=== PATIENT | male | born 1955 | race Caucasian/White ===

== ENCOUNTER 2019-01-15 12:50 | Inpatient (IN) | payer BC ==
[2019-01-15] MEDS ORDERED: Sodium Chloride 0.9% 1,000 ML IV ONE (13:21)
--- NOTE | 2019-01-15 14:06 | EDM.PDOC ---
ED HPI GENERAL MEDICAL PROBLEM - General Chief Complaint: Gastrointestinal Problem Stated Complaint: SEVERE DIARRHEA AND CHILLS Time Seen by Provider: 01/15/19 13:45 Source of Information: Reports: Patient History Limitations: Reports: No Limitations - History of Present Illness INITIAL COMMENTS - FREE TEXT/NARRATIVE: This 63 yo male patient reports to the ED due to diarrhea (x 2 days) and chills today. The patient reports he has had at least 5 watery bowel movements today and numerous yesterday. The patient reports he has stage 4 prostate cancer with mets to the back, ribs and upper abdomen. The patient was recently diagnosed with hypomagnesemia and placed on oral magnesium tablets. The dosing was increased 2 days ago and his diarrhea started yesterday. The patient reports he has been eating and drinking normally, but feels very thirsty. Onset Date: 01/14/19 Duration: Constant Location: Reports: Abdomen Quality: Reports: Other Severity: Moderate Improves with: Reports: None Worsens with: Reports: None Context: Reports: Other Associated Symptoms: Reports: No Other Symptoms - Related Data Allergies Allergy/AdvReac Type Severity Reaction Status Date / Time environmental AdvReac runny Uncoded 01/15/19 13:05 nose/congestion Home Meds: Home Meds Aspirin 81 mg PO DAILY 01/15/19 [History] Omeprazole 20 mg PO BID 01/15/19 [History] Simvastatin 20 mg PO DAILY 01/15/19 [History] Past Medical History Cardiovascular History: Reports: High Cholesterol Gastrointestinal History: Reports: GERD Hematologic History: Reports: Anemia, B12 Deficiency Oncologic (Cancer) History: Reports: Prostate, Other (See Below) Other Oncologic History: Stage 4 with mets to bone Social & Family History - Tobacco Use Smoking Status *Q: Current Every Day Smoker Years of Tobacco use: 45 Packs/Tins Daily: 1.5 - Caffeine Use Caffeine Use: Reports: Coffee, Soda - Recreational Drug Use Recreational Drug Use: No ED ROS GENERAL - Review of Systems Review Of Systems: ROS reveals no pertinent complaints other than HPI. ED EXAM, GI/ABD - Physical Exam Exam: See Below Exam Limited By: No Limitations General Appearance: Alert, WD/WN, No Apparent Distress Eyes: Bilateral: Normal Appearance, EOMI Ears: Normal External Exam, Normal Canal, Hearing Grossly Normal, Normal TMs Nose: Normal Inspection, Normal Mucosa, No Blood Throat/Mouth: Normal Inspection, Normal Lips, Normal Teeth, Normal Gums, Normal Oropharynx, Normal Voice, No Airway Compromise Head: Atraumatic, Normocephalic Neck: Normal Inspection, Supple, Non-Tender, Full Range of Motion Respiratory/Chest: No Respiratory Distress, Lungs Clear, Normal Breath Sounds, No Accessory Muscle Use, Chest Non-Tender Cardiovascular: Normal Peripheral Pulses, Regular Rate, Rhythm, No Edema, No Gallop, No JVD, No Murmur, No Rub GI/Abdominal Exam: Normal Bowel Sounds, Soft, Non-Tender, No Organomegaly, No Distention, No Abnormal Bruit, No Mass, Pelvis Stable (Male) Exam: Deferred Rectal (Males) Exam: Deferred Back Exam: Normal Inspection, Full Range of Motion, NT Extremities: Normal Inspection, Normal Range of Motion, Non-Tender, Normal Capillary Refill, No Pedal Edema Neurological: Alert, Oriented, CN II-XII Intact, Normal Cognition, Normal Gait, Normal Reflexes, No Motor/Sensory Deficits Psychiatric: Normal Affect, Normal Mood Skin Exam: Warm, Dry, Intact, Normal Color, No Rash Lymphatic: No Adenopathy Course - Vital Signs Last Recorded V/S: Last Vital Signs Temp 37.1 C 01/15/19 12:57 Pulse 66 01/15/19 12:57 Resp 16 01/15/19 12:57 BP 106/60 01/15/19 12:57 Pulse Ox 97 01/15/19 12:57 Orthostatic Blood Pressure [ 94/67 Standing] Orthostatic Blood Pressure [ 107/66 Sitting] Orthostatic Blood Pressure [ 106/60 Supine] - Orders/Labs/Meds Orders: Active Orders 24 hr Category Date Time Status EKG Documentation Completion [RC] URGENT Care 01/15/19 14:42 Ordered Labs: Laboratory Tests 01/15/19 01/15/19 Range/Units 13:37 13:37 WBC 6.1 (5.0-10.0) 10^3/uL RBC 4.20 L (4.6-6.2) 10^6/uL Hgb 13.0 L (14.0-18.0) g/dL Hct 38.0 L (40.0-54.0) % MCV 90.5 (80-100) fL MCH 31.0 (27.0-34.0) pg MCHC 34.2 (33.0-35.0) g/dL Plt Count 222 (150-450) 10^3/uL Neut % (Auto) 79.1 H (42.2-75.2) % Lymph % (Auto) 12.2 L (20.5-50.1) % [place] % (Auto) 7.4 (2-8) % Eos % (Auto) 1.0 (1.0-3.0) % Baso % (Auto) 0.3 (0.0-1.0) % Sodium 135 (135-145) mmol/L Potassium 4.3 (3.6-5.0) mmol/L Chloride 98 L (101-111) mmol/L Carbon Dioxide 26.0 (21.0-31.0) mmol/L Anion Gap 15.3 BUN 14 (7-18) mg/dL Creatinine 0.9 (0.6-1.3) mg/dL Est Cr Clr Drug Dosing 71.58 mL/min Estimated GFR (MDRD) > 60 BUN/Creatinine Ratio 15.55 Glucose 96 (74-105) mg/dL Calcium 9.8 (8.4-10.2) mg/dl Magnesium 0.8 L* (1.8-2.5) mg/dL Total Bilirubin 0.7 (0.2-1.0) mg/dL AST 20 (10-42) IU/L ALT 17 (10-60) IU/L Alkaline Phosphatase 59 (42-121) IU/L Total Protein 7.7 (6.7-8.2) g/dl Albumin 3.9 (3.2-5.5) g/dl Globulin 3.8 Albumin/Globulin Ratio 1.03 Meds: Medications Discontinued Medications Generic Name Dose Route Start Last Admin Trade Name Freq PRN Reason Stop Dose Admin Sodium Chloride 1,000 mls @ 999 mls/hr 01/15/19 13:21 01/15/19 13:41 Normal Saline IV 01/15/19 14:21 999 mls/hr .BOLUS ONE Administration Departure - Departure Time of Disposition: 14:42 Disposition: Admitted As Inpatient 66 Condition: Fair Clinical Impression: Hypomagnesemia, Diarrhea - Discharge Information *PRESCRIPTION DRUG MONITORING PROGRAM REVIEWED*: Not Applicable *COPY OF PRESCRIPTION DRUG MONITORING REPORT IN PATIENT NELLIE: Not Applicable Forms: ED Department Discharge Care Plan Goals: Discussed the history, examination, lab and treatments with Dr. Espinosa. Dr. Espinosa accepted the patient for continued evaluation and treatment as an inpatient at [facility] in [place]. - My Orders Last 24 Hours: My Active Orders 01/15/19 14:42 EKG Documentation Completion [RC] URGENT - Assessment/Plan Last 24 Hours: My Active Orders 01/15/19 14:42 EKG Documentation Completion [RC] URGENT
[2019-01-15 14:11] LABS: ANION GAP 15.3; CHLORIDE,CL 98 mmol/L (101-111); SODIUM,NA 135 mmol/L (135-145)
[2019-01-15] MEDS ORDERED: Acetaminophen 325 MG Tab PO PRN (15:54)
[2019-01-15] MEDS ORDERED: Ondansetron 4 MG/2 ML SDV IVPUSH PRN (15:54)
[2019-01-15] MEDS ORDERED: Sodium Chloride 0.9% 1,000 ML IV SCH (16:00)
--- NOTE | 2019-01-15 16:02 | PCM.HP ---
H&P History of Present Illness - General Date of Service: 01/15/19 Admit Problem/Dx: Admission Diagnosis/Problem Admission Diagnosis/Problem Hypomagnesemia Source of Information: Patient, Old Records, Provider History Limitations: Reports: No Limitations - History of Present Illness Initial Comments - Free Text/Narative: Mr. Hernan Nicole is a 63 y.o male with medical history significant for prostate cancer with osseous metastasis s/p radiation therapy, HLP, COPD, syncope and collapse, RLS, s/p small bowel resection, and hypomagnesemia who presented to the ED with complaints of diarrhea and chills. Patient reports that he was seen in clinic about a week ago and was noted to have low Magnesium. He was started on Magnesium oxide. He was instructed to take 1 to 1.5 pills daily. He was instructed to not take 2 pills as he would have diarrhea. States he decided try two of the pills yesterday and has been having terrible diarrhea to the point of having clear stools since yesterday. He also reports chills. States he had nausea this morning but could only spit up clear sputum. Denies melena, hematochezia, dysuria, hematuria, edema, abdominal pain, chest pain, shortness of breath or fevers. Denies sick contacts or trying new meals. Has not eaten out for a few days. Denies any recent travel. Reports that he drank a bottle of wine coolers yesterday but before that last drink was about a month ago. Smokes 1-2 packs of cigarettes daily. Denies illicit drug use. - Related Data Allergies/Adverse Reactions: Allergies Allergy/AdvReac Type Severity Reaction Status Date / Time environmental AdvReac runny Uncoded 01/15/19 16:02 nose/congestion Home Medications: Home Meds Albuterol [Proventil HFA] 2 puff INH Q4H PRN 01/15/19 [History] Ascorbic Acid [Vitamin C] 1,000 mg PO DAILY 01/15/19 [History] Aspirin 81 mg PO DAILY 01/15/19 [History] Calcium Carbonate/Vitamin D3 [Calcium 500 mg Chewable Tablet] 1,200 mg pe PO DAILY 01/15/19 [History] Cholecalciferol (Vitamin D3) [Vitamin D3] 1,000 unit PO DAILY 01/15/19 [History] Cyanocobalamin (Vitamin B-12) [B-12] 1,000 mcg PO DAILY 01/15/19 [History] Gabapentin [Neurontin] 600 mg PO BEDTIME 01/15/19 [History] Loratadine [Claritin] 10 mg PO DAILY 01/15/19 [History] Magnesium Oxide 400 mg PO BID 01/15/19 [History] Omeprazole 20 mg PO BID 01/15/19 [History] Polyethylene Glycol 3350 [MiraLAX] 17 gm PO DAILY PRN 01/15/19 [History] Potassium Chloride 20 meq PO BID 01/15/19 [History] Simvastatin 20 mg PO DAILY 01/15/19 [History] Vitamin E 100 unit PO DAILY 01/15/19 [History] rOPINIRole HCl [Ropinirole HCl] 5 mg PO DAILY 01/15/19 [History] Past Medical History Cardiovascular History: Reports: High Cholesterol Gastrointestinal History: Reports: GERD Hematologic History: Reports: Anemia, B12 Deficiency Oncologic (Cancer) History: Reports: Prostate, Other (See Below) Other Oncologic History: Stage 4 with mets to bone Social & Family History - Tobacco Use Smoking Status *Q: Current Every Day Smoker Years of Tobacco use: 45 Packs/Tins Daily: 1.5 - Caffeine Use Caffeine Use: Reports: Coffee, Soda - Recreational Drug Use Recreational Drug Use: No H&P Review of Systems - Review of Systems: Review Of Systems: ROS reveals no pertinent complaints other than HPI. Exam - Exam Exam: See Below - Vital Signs Vital Signs: Last Vital Signs Temp 98.7 F 01/15/19 12:57 Pulse 66 01/15/19 12:57 Resp 16 01/15/19 12:57 BP 106/60 01/15/19 12:57 Pulse Ox 97 01/15/19 12:57 Orthostatic Blood Pressure [ 94/67 Standing] Orthostatic Blood Pressure [ 107/66 Sitting] Orthostatic Blood Pressure [ 106/60 Supine] Weight: 132 lb 12.8 oz - Exam General: Alert, Oriented HEENT: Conjunctiva Clear, EOMI, Hearing Intact, Mucosa Moist & [place] Neck: Supple, Trachea Midline Lungs: Clear to Auscultation, Normal Respiratory Effort Cardiovascular: Regular Rate, Regular Rhythm, Normal S1, Normal S2 GI/Abdominal Exam: Normal Bowel Sounds, Soft, Non-Tender, No Distention, No Abnormal Bruit Extremities: Normal Inspection, Non-Tender, No Pedal Edema Skin: Warm, Dry, Intact Neuro Extensive - Mental Status: Alert, Oriented x3, Normal Mood/Affect, Normal Cognition Psychiatric: Alert, Normal Affect, Normal Mood - Patient Data Lab Results Last 24 hrs: Laboratory Results - last 24 hr 01/15/19 01/15/19 Range/Units 13:37 13:37 WBC 6.1 (5.0-10.0) 10^3/uL RBC 4.20 L (4.6-6.2) 10^6/uL Hgb 13.0 L (14.0-18.0) g/dL Hct 38.0 L (40.0-54.0) % MCV 90.5 (80-100) fL MCH 31.0 (27.0-34.0) pg MCHC 34.2 (33.0-35.0) g/dL Plt Count 222 (150-450) 10^3/uL Neut % (Auto) 79.1 H (42.2-75.2) % Lymph % (Auto) 12.2 L (20.5-50.1) % [place] % (Auto) 7.4 (2-8) % Eos % (Auto) 1.0 (1.0-3.0) % Baso % (Auto) 0.3 (0.0-1.0) % Sodium 135 (135-145) mmol/L Potassium 4.3 (3.6-5.0) mmol/L Chloride 98 L (101-111) mmol/L Carbon Dioxide 26.0 (21.0-31.0) mmol/L Anion Gap 15.3 BUN 14 (7-18) mg/dL Creatinine 0.9 (0.6-1.3) mg/dL Est Cr Clr Drug Dosing 71.58 mL/min Estimated GFR (MDRD) > 60 BUN/Creatinine Ratio 15.55 Glucose 96 (74-105) mg/dL Calcium 9.8 (8.4-10.2) mg/dl Magnesium 0.8 L* (1.8-2.5) mg/dL Total Bilirubin 0.7 (0.2-1.0) mg/dL AST 20 (10-42) IU/L ALT 17 (10-60) IU/L Alkaline Phosphatase 59 (42-121) IU/L Total Protein 7.7 (6.7-8.2) g/dl Albumin 3.9 (3.2-5.5) g/dl Globulin 3.8 Albumin/Globulin Ratio 1.03 Result Diagrams: 01/15/19 13:37 01/15/19 13:37 EKG INTERPRETATION EKG Date: 01/15/19 Rhythm: NSR Convent: Normal QRS: RBBB (Incomplete) ST-T: Other (repolarization abnormalities due to incomplete RBBB) QT: Normal - Problem List (1) Prostate cancer metastatic to bone SNOMED Code(s): 124467785 ICD Code: C61 - MALIGNANT NEOPLASM OF PROSTATE; C79.51 - SECONDARY MALIGNANT NEOPLASM OF BONE Status: Acute Current Visit: Yes (2) Tobacco use disorder SNOMED Code(s): 038787772 ICD Code: F17.200 - NICOTINE DEPENDENCE, UNSPECIFIED, UNCOMPLICATED Status : Acute Current Visit: Yes (3) Diarrhea SNOMED Code(s): 22483322 ICD Code: R19.7 - DIARRHEA, UNSPECIFIED Status: Acute Current Visit: Yes (4) Hypomagnesemia SNOMED Code(s): 564395126 ICD Code: E83.42 - HYPOMAGNESEMIA Status: Acute Current Visit: Yes Problem List Initiated/Reviewed/Updated: Yes Orders Last 24hrs: Active Orders 24 hr Category Date Time Status Admission Diagnosis [ADT] Routine ADT 01/15/19 14:44 Ordered Patient Status [ADT] Routine ADT 01/15/19 14:44 Active Cardiac Monitoring [RC] CONTINUOUS Care 01/15/19 15:54 Ordered EKG Documentation Completion [RC] URGENT Care 01/15/19 14:42 Active Oxygen Therapy [RC] PRN Care 01/15/19 15:54 Ordered VTE/DVT Education [RC] PER UNIT ROUTINE Care 01/15/19 15:54 Ordered Vital Signs [RC] Q4H Care 01/15/19 15:54 Ordered Regular Diet [DIET] Diet 01/15/19 Dinner Ordered BASIC METABOLIC PANEL,BMP [CHEM] AM Lab 01/16/19 05:11 Ordered MAGNESIUM [CHEM] AM Lab 01/16/19 05:11 Ordered PHOSPHORUS [CHEM] AM Lab 01/16/19 05:11 Ordered Acetaminophen [Tylenol] Med 01/15/19 15:54 Ordered 650 mg PO Q4H PRN Enoxaparin [Lovenox] Med 01/16/19 09:00 Ordered 40 mg SUBCUT DAILY Magnesium Sulfate/Water [Magnesium Sulfate in Water Med 01/15/19 17:00 Ordered Premix] 2 gm Premix Bag 1 bag IV ONETIME Ondansetron [Zofran] Med 01/15/19 15:54 Ordered 4 mg IVPUSH Q6H PRN Sodium Chloride 0.9% @ 125 MLS/HR (1000ml) Med 01/15/19 16:00 Ordered Sodium Chloride 0.9% [Normal Saline] 1,000 ml IV ASDIRECTED Resuscitation Status Routine Resus Stat 01/15/19 15:54 Ordered Medication Orders Acetaminophen (Tylenol) 650 mg PO Q4H PRN PRN Reason: Pain (Mild 1-3)/fever Enoxaparin Sodium (Lovenox) 40 mg SUBCUT DAILY TASH Sodium Chloride (Normal Saline) 1,000 mls @ 125 mls/hr IV ASDIRECTED TASH Magnesium Sulfate 2 gm/ Premix 50 mls @ 25 mls/hr IV ONETIME ONE Stop: 01/15/19 18:59 Ondansetron HCl (Zofran) 4 mg IVPUSH Q6H PRN PRN Reason: Nausea/Vomiting Assessment/Plan Comment:: #Hypomagnesemia: chronic; uncertain etiology. Patient with Mag of 0.6 on . Was started on oral replacement. Was 0.8 today. - Start on IV mag sulfate. - Check mag after 3 gm of Mag sulfate - Tele monitoring #Diarrhea: likely due to Mag oxide. - Denies abdominal pain, recent antibiotics, and recent travel - No new foods. - LFTs normal - Has had 4 watery bowel movements today. - IV fluids. - If diarrhea is not improving, will obtain stool studies. #Tobacco use disorder: smoking 1.5 - 2 packs of cigarettes daily - NRT - Smoking cessation counseling provided #Prostate cancer with mets - Follows with oncology #COPD: not in exacerbation. - Continue home meds #HLP #HTN - Continue home meds. DVT PPx: Lovenox GI: Regular diet Code status: Full code
[2019-01-15] MEDS ORDERED: Albuterol 6.7 GM Inhaler INH PRN (16:09)
[2019-01-15] MEDS: Nicotine 21 MG/24 Hr Patch TRDERM SCH (16:21)
[2019-01-15] MEDS ORDERED: Magnesium Sulfate/Water 2 GM in Premix Bag 1 BAG IV ONE (17:00)
[2019-01-15] MEDS: Potassium Chloride 10 MEQ Tab.ER PO SCH (18:41)
[2019-01-15] MEDS: Gabapentin 300 MG Cap PO SCH (20:36)
[2019-01-15] MEDS: rOPINIRole 2 MG Tab PO SCH (20:36)
[2019-01-15] MEDS: Simvastatin 10 MG Tab PO SCH (20:36)
[2019-01-15] MEDS: Check Patch TRDERM SCH (20:38)
[2019-01-16] MEDS: Omeprazole 20 MG Cap.CR PO SCH ×2 (06:10→16:22)
[2019-01-16 06:43] LABS: ANION GAP 11.3; CHLORIDE,CL 104 mmol/L (101-111); SODIUM,NA 137 mmol/L (135-145)
[2019-01-16] MEDS ORDERED: Phosphorus #1 250 MG Tab PO ONE (09:24)
[2019-01-16] MEDS: Loratadine 10 MG Tab PO SCH (09:43)
[2019-01-16] MEDS: Cyanocobalamin (Vitamin B12) 1,000 MCG Tab PO SCH (09:43)
[2019-01-16] MEDS: Cholecalciferol (Vitamin D3) 25 MCG Tab PO SCH (09:43)
[2019-01-16] MEDS: Aspirin 81 MG Tab.Chew PO SCH (09:44)
[2019-01-16] MEDS: Vitamin E (dl-alpha-tocopherol acetate) 400 Unit Cap PO SCH (09:44)
[2019-01-16] MEDS: Ascorbic Acid 500 MG Tab PO SCH (09:44)
[2019-01-16] MEDS: Calcium Carbonate/Vitamin D3 1250 MG-200 Unit Tab PO SCH (09:44)
[2019-01-16] MEDS: Enoxaparin 40 MG/0.4 ML Syringe SUBCUT SCH (09:46)
[2019-01-16] MEDS: Potassium Chloride 10 MEQ Tab.ER PO SCH ×2 (09:46→17:59)
[2019-01-16] MEDS: Nicotine 21 MG/24 Hr Patch TRDERM SCH (09:46)
[2019-01-16] MEDS ORDERED: Sodium Chloride 0.9% 1,000 ML IV ONE (09:53)
--- NOTE | 2019-01-16 10:04 | PCM.PN ---
- General Info Date of Service: 01/16/19 Admission Dx/Problem (Free Text): Admission Diagnosis/Problem Admission Diagnosis/Problem Hypomagnesemia Subjective Update: Reports 1 watery bowel movement overnight. States he was congested overnight and could not sleep much. Denies fevers, chills, chest pain, shortness of breath, n/v, dysuria, or hematuria. - Review of Systems General: Reports: No Symptoms HEENT: Reports: Sinus Congestion Pulmonary: Reports: No Symptoms Cardiovascular: Reports: No Symptoms Gastrointestinal: Reports: Diarrhea (x1 this morning. ) Genitourinary: Reports: No Symptoms Musculoskeletal: Reports: No Symptoms Skin: Reports: No Symptoms Neurological: Reports: No Symptoms Psychiatric: Reports: No Symptoms - Patient Data Vitals - Most Recent: Last Vital Signs Temp 99.2 F 01/15/19 19:55 Pulse 71 01/15/19 19:55 Resp 20 01/15/19 19:55 BP 102/60 01/15/19 19:55 Pulse Ox 96 01/15/19 19:55 Orthostatic Blood Pressure [ 94/67 Standing] Orthostatic Blood Pressure [ 107/66 Sitting] Orthostatic Blood Pressure [ 106/60 Supine] Weight - Most Recent: 132 lb 12.8 oz I&O - Last 24 Hours: Intake & Output 01/15/19 01/16/19 01/16/19 22:59 06:59 14:59 Intake Total 691 Output Total 150 200 Balance 541 -200 Lab Results Last 24 Hours: Laboratory Results - last 24 hr 01/15/19 01/15/19 01/15/19 Range/Units 13:37 13:37 20:30 WBC 6.1 (5.0-10.0) 10^3/uL RBC 4.20 L (4.6-6.2) 10^6/uL Hgb 13.0 L (14.0-18.0) g/dL Hct 38.0 L (40.0-54.0) % MCV 90.5 (80-100) fL MCH 31.0 (27.0-34.0) pg MCHC 34.2 (33.0-35.0) g/dL Plt Count 222 (150-450) 10^3/uL Neut % (Auto) 79.1 H (42.2-75.2) % Lymph % (Auto) 12.2 L (20.5-50.1) % [place] % (Auto) 7.4 (2-8) % Eos % (Auto) 1.0 (1.0-3.0) % Baso % (Auto) 0.3 (0.0-1.0) % Sodium 135 (135-145) mmol/L Potassium 4.3 (3.6-5.0) mmol/L Chloride 98 L (101-111) mmol/L Carbon Dioxide 26.0 (21.0-31.0) mmol/L Anion Gap 15.3 BUN 14 (7-18) mg/dL Creatinine 0.9 (0.6-1.3) mg/dL Est Cr Clr Drug Dosing 71.58 mL/min Estimated GFR (MDRD) > 60 BUN/Creatinine Ratio 15.55 Glucose 96 (74-105) mg/dL Calcium 9.8 (8.4-10.2) mg/dl Phosphorus (2.5-4.6) mg/dL Magnesium 0.8 L* 2.1 (1.8-2.5) mg/dL Total Bilirubin 0.7 (0.2-1.0) mg/dL AST 20 (10-42) IU/L ALT 17 (10-60) IU/L Alkaline Phosphatase 59 (42-121) IU/L Total Protein 7.7 (6.7-8.2) g/dl Albumin 3.9 (3.2-5.5) g/dl Globulin 3.8 Albumin/Globulin Ratio 1.03 //19 Range/Units 06:00 WBC (5.0-10.0) 10^3/uL RBC (4.6-6.2) 10^6/uL Hgb (14.0-18.0) g/dL Hct (40.0-54.0) % MCV (80-100) fL MCH (27.0-34.0) pg MCHC (33.0-35.0) g/dL Plt Count (150-450) 10^3/uL Neut % (Auto) (42.2-75.2) % Lymph % (Auto) (20.5-50.1) % [place] % (Auto) (2-8) % Eos % (Auto) (1.0-3.0) % Baso % (Auto) (0.0-1.0) % Sodium 137 (135-145) mmol/L Potassium 4.3 (3.6-5.0) mmol/L Chloride 104 (101-111) mmol/L Carbon Dioxide 26.0 (21.0-31.0) mmol/L Anion Gap 11.3 BUN 15 (7-18) mg/dL Creatinine 0.8 (0.6-1.3) mg/dL Est Cr Clr Drug Dosing 80.53 mL/min Estimated GFR (MDRD) > 60 BUN/Creatinine Ratio Glucose 112 H (74-105) mg/dL Calcium 8.2 L D (8.4-10.2) mg/dl Phosphorus 2.3 L (2.5-4.6) mg/dL Magnesium 1.8 (1.8-2.5) mg/dL Total Bilirubin (0.2-1.0) mg/dL AST (10-42) IU/L ALT (10-60) IU/L Alkaline Phosphatase (42-121) IU/L Total Protein (6.7-8.2) g/dl Albumin (3.2-5.5) g/dl Globulin Albumin/Globulin Ratio Med Orders - Current: Current Medications Acetaminophen (Tylenol) 650 mg PO Q4H PRN PRN Reason: Pain (Mild 1-3)/fever Albuterol (Proventil Hfa) 0 gm INH Q4H PRN PRN Reason: Wheezing Ascorbic Acid (Vitamin C) 1,000 mg PO DAILY [facility] Last Admin: 01/16/19 09:44 Dose: 1,000 mg Aspirin (Aspirin) 81 mg PO DAILY [facility] Last Admin: 01/16/19 09:44 Dose: 81 mg Calcium Carbonate (Calcium Carbonate/Vitamin D 1250 Mg-200 Unit) 1 tab PO DAILY [facility] Last Admin: 01/16/19 09:44 Dose: 1 tab Cholecalciferol (Vitamin D3) 25 mcg PO DAILY [facility] Last Admin: 01/16/19 09:43 Dose: 25 mcg Cyanocobalamin (Vitamin B12) 1,000 mcg PO DAILY [facility] Last Admin: 01/16/19 09:43 Dose: 1,000 mcg Enoxaparin Sodium (Lovenox) 40 mg SUBCUT DAILY [facility] Last Admin: 01/16/19 09:46 Dose: Not Given Gabapentin (Neurontin) 600 mg PO BEDTIME [facility] Last Admin: 01/15/19 20:36 Dose: 600 mg Sodium Chloride (Normal Saline) 1,000 mls @ 500 mls/hr IV .BOLUS ONE Stop: 01/16/19 11:52 Loratadine (Claritin) 10 mg PO DAILY [facility] Last Admin: 01/16/19 09:43 Dose: 10 mg Miscellaneous Information (Check Patch) 1 ea TRDERM BEDTIME [facility] Last Admin: 01/15/19 20:38 Dose: 1 ea Nicotine (Habitrol) 21 mg TRDERM DAILY [facility] Last Admin: 01/16/19 09:46 Dose: 21 mg Omeprazole (Omeprazole) 20 mg PO BIDAC [facility] Last Admin: 01/16/19 06:10 Dose: 20 mg Ondansetron HCl (Zofran) 4 mg IVPUSH Q6H PRN PRN Reason: Nausea/Vomiting Potassium Chloride (Klor-Con 10) 20 meq PO BIDMEALS [facility] Last Admin: 01/16/19 09:46 Dose: Not Given Ropinirole HCl (Requip) 5 mg PO BEDTIME [facility] Last Admin: 01/15/19 20:36 Dose: 5 mg Simvastatin (Zocor) 20 mg PO BEDTIME [facility] Last Admin: 01/15/19 20:36 Dose: 20 mg Vitamin E (Vitamin E) 400 units PO DAILY [facility] Last Admin: 01/16/19 09:44 Dose: 400 units Discontinued Medications Sodium Chloride (Normal Saline) 1,000 mls @ 999 mls/hr IV .BOLUS ONE Stop: 01/15/19 14:21 Last Admin: 01/15/19 13:41 Dose: 999 mls/hr Magnesium Sulfate/Dextrose 1 (gm/ Premix) 100 mls @ 100 mls/hr IV ONETIME ONE Stop: 01/15/19 15:48 Last Infusion: 01/15/19 17:18 Dose: Infused Sodium Chloride (Normal Saline) 1,000 mls @ 125 mls/hr IV ASDIRECTED [facility] Last Admin: 01/15/19 17:16 Dose: 125 mls/hr Magnesium Sulfate 2 gm/ Premix 50 mls @ 25 mls/hr IV ONETIME ONE Stop: 01/15/19 18:59 Last Admin: 01/15/19 17:14 Dose: 25 mls/hr Magnesium Oxide (Magnesium Oxide) 250 mg PO WITHBREAKFAST [facility] Sodium Phosphate (Neutra-Phos) 500 mg PO ONETIME ONE Stop: 01/16/19 09:25 - Exam General: Alert, Oriented, No Acute Distress HEENT: Pupils Equal, Pupils Reactive, Mucous Membr. Moist/[place] Neck: Supple Lungs: Clear to Auscultation, Normal Respiratory Effort Cardiovascular: Regular Rate, Regular Rhythm GI/Abdominal Exam: Normal Bowel Sounds, Soft, Non-Tender, No Distention Extremities: Non-Tender, No Pedal Edema, Mottled Skin: Warm, Dry, Intact Neurological: No New Focal Deficit Psy/Mental Status: Alert, Normal Affect, Normal Mood - Problem List & Annotations (1) Prostate cancer metastatic to bone SNOMED Code(s): 322877894 Code(s): C61 - MALIGNANT NEOPLASM OF PROSTATE; C79.51 - SECONDARY MALIGNANT NEOPLASM OF BONE Status: Acute Current Visit: Yes (2) Tobacco use disorder SNOMED Code(s): 919652091 Code(s): F17.200 - NICOTINE DEPENDENCE, UNSPECIFIED, UNCOMPLICATED Status: Acute Current Visit: Yes (3) Diarrhea SNOMED Code(s): 88733327 Code(s): R19.7 - DIARRHEA, UNSPECIFIED Status: Acute Current Visit: Yes (4) Hypomagnesemia SNOMED Code(s): 534793431 Code(s): E83.42 - HYPOMAGNESEMIA Status: Acute Current Visit: Yes - Problem List Review Problem List Initiated/Reviewed/Updated: Yes - My Orders Last 24 Hours: My Active Orders 01/15/19 15:54 Cardiac Monitoring [RC] 09,21 Oxygen Therapy [RC] PRN VTE/DVT Education [RC] PER UNIT ROUTINE Vital Signs [RC] Q4H Acetaminophen [Tylenol] 650 mg PO Q4H PRN Ondansetron [Zofran] 4 mg IVPUSH Q6H PRN Resuscitation Status Routine 01/15/19 16:09 Albuterol [Proventil HFA] 0 gm INH Q4H PRN 01/15/19 16:15 Nicotine [Habitrol] 21 mg TRDERM DAILY 01/15/19 18:00 Potassium Chloride [Klor-Con 10] 20 meq PO BIDMEALS 01/15/19 21:00 Check Patch 1 ea TRDERM BEDTIME Gabapentin [Neurontin] 600 mg PO BEDTIME Simvastatin [Zocor] 20 mg PO BEDTIME rOPINIRole [Requip] 5 mg PO BEDTIME 01/15/19 Dinner Regular Diet [DIET] 01/16/19 06:00 Omeprazole 20 mg PO BIDAC 01/16/19 09:00 Ascorbic Acid [Vitamin C] 1,000 mg PO DAILY Aspirin 81 mg PO DAILY Calcium Carbonate/Vitamin D3 [Calcium Carbonate/Vitamin D 1250 MG-200 Unit] 1 tab PO DAILY Cholecalciferol (Vitamin D3) [Vitamin D3] 25 mcg PO DAILY Cyanocobalamin (Vitamin B12) [Vitamin B12] 1,000 mcg PO DAILY Enoxaparin [Lovenox] 40 mg SUBCUT DAILY Loratadine [Claritin] 10 mg PO DAILY Vitamin E (dl, acetate) [Vitamin E] 400 units PO DAILY 01/16/19 09:53 Sodium Chloride 0.9% [Normal Saline] 1,000 ml IV .BOLUS - Plan Plan:: #Hypomagnesemia: Improved. chronic; uncertain etiology. Patient with Mag of 0.6 on 01/07/19. Was started on oral replacement. Was 0.8 on admit. - Went up to 2.1 after 3 g of mag sulfate. - Down to 1.8 this morning. - Due to recurrence of diarrhea, will give 1g IV mag sulfate and recheck levels. - If within normal range, will d/c to follow up as outpatient. - Tele monitoring #Diarrhea: likely due to Mag oxide. - Denies abdominal pain, recent antibiotics, and recent travel - No new foods. - LFTs normal - Has had 4 watery bowel movements on day of admit. - Diarrhea resolved until this morning with 1 watery bowel movement. - IV fluids. #Nasal congestion: - Saline nasal spray. #Tobacco use disorder: smoking 1.5 - 2 packs of cigarettes daily - NRT - Smoking cessation counseling provided #Prostate cancer with mets - Follows with oncology #COPD: not in exacerbation. - Continue home meds #HLP #HTN: BP is at goal, on the lower side today. - Continue zocor - Give 1000 cc of IVF over two hours DVT PPx: Lovenox GI: Regular diet Code status: Full code
[2019-01-16] MEDS ORDERED: Sodium Chloride 0.65% Nasal Spray 45 ML Bottle NAS PRN (12:35)
[2019-01-16 13:06] LABS: ANION GAP 9.8; CHLORIDE,CL 105 mmol/L (101-111); SODIUM,NA 136 mmol/L (135-145)
[2019-01-16] MEDS: Acetaminophen 325 MG Tab PO PRN (17:57)
[2019-01-16] MEDS: Piperacillin/Tazobactam 3.375 GM in Sodium Chloride 0.9% 100 ML IV SCH ×2 (18:30→23:12)
[2019-01-16] MEDS: Gabapentin 300 MG Cap PO SCH (20:40)
[2019-01-16] MEDS: Simvastatin 10 MG Tab PO SCH (20:40)
[2019-01-16] MEDS: rOPINIRole 2 MG Tab PO SCH (20:41)
[2019-01-16] MEDS: Check Patch TRDERM SCH (21:00)
[2019-01-17] MEDS: Piperacillin/Tazobactam 3.375 GM in Sodium Chloride 0.9% 100 ML IV SCH ×4 (05:16→22:38)
[2019-01-17] MEDS: Omeprazole 20 MG Cap.CR PO SCH ×2 (05:57→15:29)
[2019-01-17] MEDS: Cholecalciferol (Vitamin D3) 25 MCG Tab PO SCH (08:30)
[2019-01-17] MEDS: Cyanocobalamin (Vitamin B12) 1,000 MCG Tab PO SCH (08:30)
[2019-01-17] MEDS: Calcium Carbonate/Vitamin D3 1250 MG-200 Unit Tab PO SCH (08:30)
[2019-01-17] MEDS: Potassium Chloride 10 MEQ Tab.ER PO SCH ×2 (08:30→17:40)
[2019-01-17] MEDS: Loratadine 10 MG Tab PO SCH (08:30)
[2019-01-17] MEDS: Ascorbic Acid 500 MG Tab PO SCH (08:30)
[2019-01-17] MEDS: Vitamin E (dl-alpha-tocopherol acetate) 400 Unit Cap PO SCH (08:30)
[2019-01-17] MEDS: Aspirin 81 MG Tab.Chew PO SCH (08:30)
[2019-01-17] MEDS: Nicotine 21 MG/24 Hr Patch TRDERM SCH (08:31)
[2019-01-17] MEDS: Enoxaparin 40 MG/0.4 ML Syringe SUBCUT SCH (08:32)
[2019-01-17] MEDS: Acetaminophen 325 MG Tab PO PRN ×2 (08:33→16:38)
[2019-01-17 11:13] LABS: ANION GAP 11.5; CHLORIDE,CL 105 mmol/L (101-111); SODIUM,NA 134 mmol/L (135-145)
--- NOTE | 2019-01-17 11:21 | PCM.PN ---
- General Info Date of Service: 01/17/19 Admission Dx/Problem (Free Text): Admission Diagnosis/Problem Admission Diagnosis/Problem Hypomagnesemia Subjective Update: Reports 3 watery bowel movements this morning. Was febrile last night and this morning. Denies chest pain, shortness of breath, n/v, dysuria, or hematuria. - Patient Data Vitals - Most Recent: Last Vital Signs Temp 100.5 F 01/17/19 07:47 Pulse 80 01/17/19 07:47 Resp 18 01/17/19 07:47 BP 118/60 01/17/19 07:47 Pulse Ox 93 L 01/17/19 07:47 Orthostatic Blood Pressure [ 94/67 Standing] Orthostatic Blood Pressure [ 107/66 Sitting] Orthostatic Blood Pressure [ 106/60 Supine] Weight - Most Recent: 132 lb 12.8 oz I&O - Last 24 Hours: Intake & Output 01/16/19 01/17/19 01/17/19 22:59 06:59 14:59 Intake Total 587 203 180 Balance 587 203 180 Lab Results Last 24 Hours: Laboratory Results - last 24 hr 01/16/19 01/16/19 01/16/19 Range/Units 12:39 12:39 12:39 D-Dimer, Quantitative 522 H (0-400) ng/mL Sodium 136 (135-145) mmol/L Potassium 3.8 (3.6-5.0) mmol/L Chloride 105 (101-111) mmol/L Carbon Dioxide 25.0 (21.0-31.0) mmol/L Anion Gap 9.8 BUN 13 (7-18) mg/dL Creatinine 0.8 (0.6-1.3) mg/dL Est Cr Clr Drug Dosing 80.53 mL/min Estimated GFR (MDRD) > 60 Glucose 99 (74-105) mg/dL Calcium 7.6 L (8.4-10.2) mg/dl Phosphorus 2.1 L (2.5-4.6) mg/dL Magnesium 2.1 (1.8-2.5) mg/dL Troponin I < 0.02 (0.00-0.02) ng/ml Albumin 2.9 L (3.2-5.5) g/dl 01/16/19 Range/Units 18:40 D-Dimer, Quantitative (0-400) ng/mL Sodium (135-145) mmol/L Potassium (3.6-5.0) mmol/L Chloride (101-111) mmol/L Carbon Dioxide (21.0-31.0) mmol/L Anion Gap BUN (7-18) mg/dL Creatinine (0.6-1.3) mg/dL Est Cr Clr Drug Dosing mL/min Estimated GFR (MDRD) Glucose (74-105) mg/dL Calcium (8.4-10.2) mg/dl Phosphorus (2.5-4.6) mg/dL Magnesium (1.8-2.5) mg/dL Troponin I < 0.02 (0.00-0.02) ng/ml Albumin (3.2-5.5) g/dl Med Orders - Current: Current Medications Acetaminophen (Tylenol) 650 mg PO Q6H PRN PRN Reason: Fever Greater Than 101 Last Admin: 01/17/19 08:33 Dose: 650 mg Albuterol (Proventil Hfa) 0 gm INH Q4H PRN PRN Reason: Wheezing Ascorbic Acid (Vitamin C) 1,000 mg PO DAILY [facility] Last Admin: 01/17/19 08:30 Dose: 1,000 mg Aspirin (Aspirin) 81 mg PO DAILY [facility] Last Admin: 01/17/19 08:30 Dose: 81 mg Calcium Carbonate (Calcium Carbonate/Vitamin D 1250 Mg-200 Unit) 1 tab PO DAILY [facility] Last Admin: 01/17/19 08:30 Dose: 1 tab Cholecalciferol (Vitamin D3) 25 mcg PO DAILY [facility] Last Admin: 01/17/19 08:30 Dose: 25 mcg Cyanocobalamin (Vitamin B12) 1,000 mcg PO DAILY [facility] Last Admin: 01/17/19 08:30 Dose: 1,000 mcg Enoxaparin Sodium (Lovenox) 40 mg SUBCUT DAILY [facility] Last Admin: 01/17/19 08:32 Dose: Not Given Gabapentin (Neurontin) 600 mg PO BEDTIME [facility] Last Admin: 01/16/19 20:40 Dose: 600 mg Piperacillin Sod/Tazobactam (Sod 3.375 gm/ Sodium Chloride) 100 mls @ 200 mls/ hr IV Q6H [facility] Last Admin: 01/17/19 10:58 Dose: 200 mls/hr Vancomycin HCl 1 gm/ Sodium (Chloride) 250 mls @ 166.667 mls/hr IV Q12H [facility] Last Admin: 01/17/19 05:55 Dose: 166.667 mls/hr Sodium Chloride (Normal Saline) 1,000 mls @ 75 mls/hr IV ASDIRECTED [facility] Stop: 01/18/19 11:16 Loratadine (Claritin) 10 mg PO DAILY [facility] Last Admin: 01/17/19 08:30 Dose: 10 mg Miscellaneous Information (Check Patch) 1 ea TRDERM BEDTIME [facility] Last Admin: 01/16/19 21:00 Dose: 1 ea Nicotine (Habitrol) 21 mg TRDERM DAILY [facility] Last Admin: 01/17/19 08:31 Dose: 21 mg Omeprazole (Omeprazole) 20 mg PO BIDAC [facility] Last Admin: 01/17/19 05:57 Dose: 20 mg Ondansetron HCl (Zofran) 4 mg IVPUSH Q6H PRN PRN Reason: Nausea/Vomiting Potassium Chloride (Klor-Con 10) 20 meq PO BIDMEALS [facility] Last Admin: 01/17/19 08:30 Dose: 20 meq Ropinirole HCl (Requip) 5 mg PO BEDTIME [facility] Last Admin: 01/16/19 20:41 Dose: 5 mg Simvastatin (Zocor) 20 mg PO BEDTIME [facility] Last Admin: 01/16/19 20:40 Dose: 20 mg Sodium Chloride ([place] Nasal [place]) 0 ml CHARLIE Q4H PRN PRN Reason: Congestion Vancomycin HCl (Pharmacy To Dose - Vancomycin) 1 dose .XX ASDIRECTED [facility] Vitamin E (Vitamin E) 400 units PO DAILY [facility] Last Admin: 01/17/19 08:30 Dose: 400 units Discontinued Medications Acetaminophen (Tylenol) 650 mg PO Q4H PRN PRN Reason: Pain (Mild 1-3)/fever Sodium Chloride (Normal Saline) 1,000 mls @ 999 mls/hr IV .BOLUS ONE Stop: 01/15/19 14:21 Last Admin: 01/15/19 13:41 Dose: 999 mls/hr Magnesium Sulfate/Dextrose 1 (gm/ Premix) 100 mls @ 100 mls/hr IV ONETIME ONE Stop: 01/15/19 15:48 Last Infusion: 01/15/19 17:18 Dose: Infused Sodium Chloride (Normal Saline) 1,000 mls @ 125 mls/hr IV ASDIRECTED [facility] Last Admin: 01/15/19 17:16 Dose: 125 mls/hr Magnesium Sulfate 2 gm/ Premix 50 mls @ 25 mls/hr IV ONETIME ONE Stop: 01/15/19 18:59 Last Admin: 01/15/19 17:14 Dose: 25 mls/hr Sodium Chloride (Normal Saline) 1,000 mls @ 500 mls/hr IV .BOLUS ONE Stop: 01/16/19 11:52 Last Admin: 01/16/19 10:08 Dose: 500 mls/hr Magnesium Sulfate/Dextrose (Magnesium Sulfate In D5w 100 Premix) 100 mls @ 100 mls/hr IV ONETIME ONE Stop: 01/16/19 11:59 Last Admin: 01/16/19 11:03 Dose: 100 mls/hr Magnesium Oxide (Magnesium Oxide) 250 mg PO WITHBREAKFAST [facility] Last Admin: 01/16/19 10:15 Dose: Not Given Sodium Phosphate (Neutra-Phos) 500 mg PO ONETIME ONE Stop: 01/16/19 09:25 Last Admin: 01/16/19 10:08 Dose: 500 mg - Exam General: Alert, Oriented, Cooperative, Moderate Distress HEENT: Pupils Equal, Pupils Reactive, Mucous Membr. Moist/[place] Lungs: Clear to Auscultation, Normal Respiratory Effort Cardiovascular: Regular Rate, Regular Rhythm GI/Abdominal Exam: Normal Bowel Sounds, Soft, No Distention, Tender Extremities: Normal Inspection, Non-Tender, No Pedal Edema Skin: Warm, Dry, Intact Neurological: No New Focal Deficit Psy/Mental Status: Alert, Normal Affect, Normal Mood - Problem List & Annotations (1) Prostate cancer metastatic to bone SNOMED Code(s): 979626793 Code(s): C61 - MALIGNANT NEOPLASM OF PROSTATE; C79.51 - SECONDARY MALIGNANT NEOPLASM OF BONE Status: Acute Current Visit: Yes (2) Tobacco use disorder SNOMED Code(s): 543104258 Code(s): F17.200 - NICOTINE DEPENDENCE, UNSPECIFIED, UNCOMPLICATED Status: Acute Current Visit: Yes (3) Diarrhea SNOMED Code(s): 44492021 Code(s): R19.7 - DIARRHEA, UNSPECIFIED Status: Acute Current Visit: Yes (4) Hypomagnesemia SNOMED Code(s): 183842108 Code(s): E83.42 - HYPOMAGNESEMIA Status: Acute Current Visit: Yes - Problem List Review Problem List Initiated/Reviewed/Updated: Yes - My Orders Last 24 Hours: My Active Orders 01/16/19 12:35 Sodium Chloride 0.65% [[place] Nasal Clements] See Dose Instructions CHARLIE Q4H PRN 01/16/19 16:43 Blood Culture x2 Reflex Set [OM.PC] Stat 01/16/19 16:51 Acetaminophen [Tylenol] 650 mg PO Q6H PRN 01/16/19 17:00 Pharmacy to Dose - Vancomycin 1 dose .XX ASDIRECTED Piperacillin/Tazobactam [Zosyn] 3.375 gm Sodium Chloride 0.9% [Normal Saline] 100 ml IV Q6H 01/16/19 17:46 CULTURE BLOOD [BC] Stat CULTURE BLOOD [BC] Stat 01/16/19 18:00 Vancomycin 1 gm Sodium Chloride 0.9% [Normal Saline] 250 ml IV Q12H 01/17/19 10:43 BASIC METABOLIC PANEL,BMP [CHEM] Routine MAGNESIUM [CHEM] Routine 01/17/19 11:12 Chest Abdomen Pelvis w Cont [CT] Urgent 01/17/19 11:15 Sodium Chloride 0.9% @ 75 MLS/HR(1000ml) Sodium Chloride 0.9% [Normal Saline] 1 ,000 ml IV ASDIRECTED - Plan Plan:: Sepsis: probable abdominal source. Patient with temp >102 and RR of 20. Immunocompromised. - Follow up on blood cultures - Continue vancomycin and zosyn. - CT chest, abdomen, and pelvis, - Stool studies, lactic acid, and lipase. - Rule out C diff #Hypomagnesemia: Improved. chronic; uncertain etiology. Patient with Mag of 0.6 on 01/07/19. Was started on oral replacement. Was 0.8 on admit. - Went up to 2.1 after 3 g of mag sulfate. -Trended down to 1.8. Was given an extra 1 g of IV mag oxide - Tele monitoring #Diarrhea: likely due to Mag oxide. Possibly infectious as patient continues to have diarrhea off mag oxide. - Now with abdominal pain - Denies recent antibiotics, and recent travel, or new foods. - LFTs normal - Had 4 watery bowel movements on day of admit. - IV fluids. #Nasal congestion: - Saline nasal spray. #Tobacco use disorder: smoking 1.5 - 2 packs of cigarettes daily - NRT - Smoking cessation counseling provided #Prostate cancer with mets - Follows with oncology - I will notify oncologist about admission per patient's request. #COPD: not in exacerbation. - Continue home meds #HLP #HTN: BP is at goal, on the lower side today. - Continue zocor - Give 1000 cc of IVF over two hours DVT PPx: Lovenox GI: Regular diet Code status: Full code
[2019-01-17] MEDS ORDERED: Iopamidol 612 MG/ML 100 ML Bottle IVPUSH ONE (11:37)
[2019-01-17] MEDS: Sodium Chloride 0.9% 1,000 ML IV SCH (11:40)
[2019-01-17] MEDS: Potassium Chloride 10 MEQ in Premix Bag 1 BAG IV SCH ×4 (12:30→16:34)
[2019-01-17] MEDS: Simvastatin 10 MG Tab PO SCH (19:59)
[2019-01-17] MEDS: Gabapentin 300 MG Cap PO SCH (19:59)
[2019-01-17] MEDS: rOPINIRole 2 MG Tab PO SCH (19:59)
[2019-01-17] MEDS: Check Patch TRDERM SCH (20:00)
[2019-01-18] MEDS: Sodium Chloride 0.9% 1,000 ML IV SCH (04:37)
[2019-01-18] MEDS: Piperacillin/Tazobactam 3.375 GM in Sodium Chloride 0.9% 100 ML IV SCH (04:40)
[2019-01-18] MEDS: Acetaminophen 325 MG Tab PO PRN (04:43)
[2019-01-18] MEDS: Omeprazole 20 MG Cap.CR PO SCH ×2 (05:16→16:08)
[2019-01-18 06:28] LABS: ANION GAP 10.5; CHLORIDE,CL 108 mmol/L (101-111); SODIUM,NA 135 mmol/L (135-145)
[2019-01-18] MEDS: Potassium Chloride 10 MEQ Tab.ER PO SCH ×2 (08:46→17:37)
[2019-01-18] MEDS: Vitamin E (dl-alpha-tocopherol acetate) 400 Unit Cap PO SCH (08:47)
[2019-01-18] MEDS: Calcium Carbonate/Vitamin D3 1250 MG-200 Unit Tab PO SCH (08:47)
[2019-01-18] MEDS: Cyanocobalamin (Vitamin B12) 1,000 MCG Tab PO SCH (08:47)
[2019-01-18] MEDS: Aspirin 81 MG Tab.Chew PO SCH (08:48)
[2019-01-18] MEDS: Loratadine 10 MG Tab PO SCH (08:48)
[2019-01-18] MEDS: Ascorbic Acid 500 MG Tab PO SCH (08:48)
[2019-01-18] MEDS: Nicotine 21 MG/24 Hr Patch TRDERM SCH (08:49)
[2019-01-18] MEDS: Enoxaparin 40 MG/0.4 ML Syringe SUBCUT SCH (08:49)
[2019-01-18] MEDS: Cholecalciferol (Vitamin D3) 25 MCG Tab PO SCH (08:55)
[2019-01-18] MEDS ORDERED: Magnesium Sulfate/Water 2 GM in Premix Bag 1 BAG IV ONE ×2 (09:08→14:08)
[2019-01-18] MEDS: Phosphorus #1 250 MG Tab PO SCH ×3 (10:09→22:06)
[2019-01-18] MEDS: metroNIDAZOLE 250 MG Tab PO SCH ×3 (10:10→22:05)
[2019-01-18] MEDS: Ciprofloxacin 500 MG Tab PO SCH ×2 (10:10→22:06)
--- NOTE | 2019-01-18 10:46 | PCM.PN ---
- General Info Date of Service: 01/18/19 Admission Dx/Problem (Free Text): Admission Diagnosis/Problem Admission Diagnosis/Problem Hypomagnesemia Subjective Update: Reports still having watery bowel movements this morning. Was afebrile last night and this morning. Denies chest pain, shortness of breath, n/v, dysuria, or hematuria. - Patient Data Vitals - Most Recent: Last Vital Signs Temp 97.5 F 01/18/19 07:41 Pulse 65 01/18/19 07:41 Resp 18 01/18/19 07:41 BP 93/57 L 01/18/19 07:41 Pulse Ox 97 01/18/19 07:41 Orthostatic Blood Pressure [ 94/67 Standing] Orthostatic Blood Pressure [ 107/66 Sitting] Orthostatic Blood Pressure [ 106/60 Supine] Weight - Most Recent: 132 lb 12.8 oz I&O - Last 24 Hours: Intake & Output 01/17/19 01/18/19 01/18/19 22:59 06:59 14:59 Intake Total 868 1433 240 Balance 868 1433 240 Lab Results Last 24 Hours: Laboratory Results - last 24 hr 01/17/19 01/17/19 01/17/19 Range/Units 10:43 12:57 12:57 WBC (5.0-10.0) 10^3/uL RBC (4.6-6.2) 10^6/uL Hgb (14.0-18.0) g/dL Hct (40.0-54.0) % MCV (80-100) fL MCH (27.0-34.0) pg MCHC (33.0-35.0) g/dL Plt Count (150-450) 10^3/uL Sodium 134 L (135-145) mmol/L Potassium 3.5 L (3.6-5.0) mmol/L Chloride 105 (101-111) mmol/L Carbon Dioxide 21.0 (21.0-31.0) mmol/L Anion Gap 11.5 BUN 13 (7-18) mg/dL Creatinine 1.0 (0.6-1.3) mg/dL Est Cr Clr Drug Dosing 64.42 mL/min Estimated GFR (MDRD) > 60 Glucose 112 H (74-105) mg/dL Lactic Acid 1.6 (0.5-2.2) mmol/L Calcium 7.5 L (8.4-10.2) mg/dl Phosphorus (2.5-4.6) mg/dL Magnesium 1.6 L (1.8-2.5) mg/dL Lipase 25 (22-51) U/L 01/18/19 01/18/19 Range/Units 06:05 06:05 WBC 7.3 (5.0-10.0) 10^3/uL RBC 3.59 L (4.6-6.2) 10^6/uL Hgb 10.9 L D (14.0-18.0) g/dL Hct 33.0 L (40.0-54.0) % MCV 91.9 (80-100) fL MCH 30.4 (27.0-34.0) pg MCHC 33.0 (33.0-35.0) g/dL Plt Count 190 (150-450) 10^3/uL Sodium 135 (135-145) mmol/L Potassium 3.5 L (3.6-5.0) mmol/L Chloride 108 (101-111) mmol/L Carbon Dioxide 20.0 L (21.0-31.0) mmol/L Anion Gap 10.5 BUN 9 (7-18) mg/dL Creatinine 0.9 (0.6-1.3) mg/dL Est Cr Clr Drug Dosing 71.58 mL/min Estimated GFR (MDRD) > 60 Glucose 101 (74-105) mg/dL Lactic Acid (0.5-2.2) mmol/L Calcium 7.2 L (8.4-10.2) mg/dl Phosphorus 1.5 L (2.5-4.6) mg/dL Magnesium 1.7 L (1.8-2.5) mg/dL Lipase (22-51) U/L [place] Results Last 24 Hours: Microbiology 01/17/19 12:03 Stool Culture - Preliminary Stool / Feces NORMAL ENTERIC SHAREE. NO SALMONELLA, SHIGELLA, CAMPYLOBACTER OR E.COLI O157 ISOLATED. 01/16/19 17:46 Aerobic Blood Culture - Preliminary Blood - Venous - Lab Draw NO GROWTH AFTER 1 DAY Anaerobic Blood Culture - Preliminary NO GROWTH AFTER 1 DAY 01/16/19 17:46 Aerobic Blood Culture - Preliminary Blood - Venous NO GROWTH AFTER 1 DAY Anaerobic Blood Culture - Preliminary NO GROWTH AFTER 1 DAY Med Orders - Current: Current Medications Acetaminophen (Tylenol) 650 mg PO Q6H PRN PRN Reason: Fever Greater Than 101 Last Admin: 01/18/19 04:43 Dose: 650 mg Albuterol (Proventil Hfa) 0 gm INH Q4H PRN PRN Reason: Wheezing Ascorbic Acid (Vitamin C) 1,000 mg PO DAILY [facility] Last Admin: 01/18/19 08:48 Dose: 1,000 mg Aspirin (Aspirin) 81 mg PO DAILY [facility] Last Admin: 01/18/19 08:48 Dose: 81 mg Calcium Carbonate (Calcium Carbonate/Vitamin D 1250 Mg-200 Unit) 1 tab PO DAILY [facility] Last Admin: 01/18/19 08:47 Dose: 1 tab Cholecalciferol (Vitamin D3) 25 mcg PO DAILY [facility] Last Admin: 01/18/19 08:55 Dose: 25 mcg Ciprofloxacin (Ciprofloxacin Hcl) 500 mg PO BID [facility] Stop: 01/23/19 09:16 Last Admin: 01/18/19 10:10 Dose: 500 mg Cyanocobalamin (Vitamin B12) 1,000 mcg PO DAILY [facility] Last Admin: 01/18/19 08:47 Dose: 1,000 mcg Enoxaparin Sodium (Lovenox) 40 mg SUBCUT DAILY [facility] Last Admin: 01/18/19 08:49 Dose: Not Given Gabapentin (Neurontin) 600 mg PO BEDTIME [facility] Last Admin: 01/17/19 19:59 Dose: 600 mg Sodium Chloride (Normal Saline) 1,000 mls @ 75 mls/hr IV ASDIRECTED [facility] Stop: 01/18/19 11:16 Last Admin: 01/18/19 04:37 Dose: 75 mls/hr Magnesium Sulfate 2 gm/ Premix 50 mls @ 25 mls/hr IV ONETIME ONE Stop: 01/18/19 11:07 Last Admin: 01/18/19 10:05 Dose: 25 mls/hr Loratadine (Claritin) 10 mg PO DAILY [facility] Last Admin: 01/18/19 08:48 Dose: 10 mg Metronidazole (Metronidazole) 500 mg PO Q8HR [facility] Last Admin: 01/18/19 10:10 Dose: 500 mg Miscellaneous Information (Check Patch) 1 ea TRDERM BEDTIME [facility] Last Admin: 01/17/19 20:00 Dose: 1 ea Nicotine (Habitrol) 21 mg TRDERM DAILY [facility] Last Admin: 01/18/19 08:49 Dose: 21 mg Omeprazole (Omeprazole) 20 mg PO BIDAC [facility] Last Admin: 01/18/19 05:16 Dose: 20 mg Ondansetron HCl (Zofran) 4 mg IVPUSH Q6H PRN PRN Reason: Nausea/Vomiting Potassium Chloride (Klor-Con 10) 20 meq PO BIDMEALS [facility] Last Admin: 01/18/19 08:46 Dose: 20 meq Ropinirole HCl (Requip) 5 mg PO BEDTIME [facility] Last Admin: 01/17/19 19:59 Dose: 5 mg Simvastatin (Zocor) 20 mg PO BEDTIME [facility] Last Admin: 01/17/19 19:59 Dose: 20 mg Sodium Chloride ([place] Nas[place]) 0 ml CHARLIE Q4H PRN PRN Reason: Congestion Sodium Phosphate (Neutra-Phos) 500 mg PO TID [facility] Stop: 01/19/19 21:01 Last Admin: 01/18/19 10:09 Dose: 500 mg Vitamin E (Vitamin E) 400 units PO DAILY [facility] Last Admin: 01/18/19 08:47 Dose: 400 units Discontinued Medications Acetaminophen (Tylenol) 650 mg PO Q4H PRN PRN Reason: Pain (Mild 1-3)/fever Sodium Chloride (Normal Saline) 1,000 mls @ 999 mls/hr IV .BOLUS ONE Stop: 01/15/19 14:21 Last Admin: 01/15/19 13:41 Dose: 999 mls/hr Magnesium Sulfate/Dextrose 1 (gm/ Premix) 100 mls @ 100 mls/hr IV ONETIME ONE Stop: 01/15/19 15:48 Last Infusion: 01/15/19 17:18 Dose: Infused Sodium Chloride (Normal Saline) 1,000 mls @ 125 mls/hr IV ASDIRECTED [facility] Last Admin: 01/15/19 17:16 Dose: 125 mls/hr Magnesium Sulfate 2 gm/ Premix 50 mls @ 25 mls/hr IV ONETIME ONE Stop: 01/15/19 18:59 Last Admin: 01/15/19 17:14 Dose: 25 mls/hr Sodium Chloride (Normal Saline) 1,000 mls @ 500 mls/hr IV .BOLUS ONE Stop: 01/16/19 11:52 Last Admin: 01/16/19 10:08 Dose: 500 mls/hr Magnesium Sulfate/Dextrose (Magnesium Sulfate In D5w 100 Premix) 100 mls @ 100 mls/hr IV ONETIME ONE Stop: 01/16/19 11:59 Last Admin: 01/16/19 11:03 Dose: 100 mls/hr Piperacillin Sod/Tazobactam (Sod 3.375 gm/ Sodium Chloride) 100 mls @ 200 mls/ hr IV Q6H [facility] Last Infusion: 01/18/19 06:07 Dose: Infused Vancomycin HCl 1 gm/ Sodium (Chloride) 250 mls @ 166.667 mls/hr IV Q12H [facility] Last Admin: 01/18/19 05:16 Dose: 166.667 mls/hr Magnesium Sulfate/Dextrose 1 (gm/ Premix) 100 mls @ 100 mls/hr IV ONETIME ONE Stop: 01/17/19 12:38 Last Infusion: 01/17/19 13:55 Dose: Infused Potassium Chloride 10 meq/ (Premix) 100 mls @ 100 mls/hr IV Q1H [facility] Stop: 01/17/19 15:59 Last Infusion: 01/17/19 17:40 Dose: Infused Iopamidol (Isovue-300 (61%)) 100 ml IVPUSH ONETIME ONE Stop: 01/17/19 11:38 Last Admin: 01/17/19 12:26 Dose: 100 ml Magnesium Oxide (Magnesium Oxide) 250 mg PO WITHBREAKFAST [facility] Last Admin: 01/16/19 10:15 Dose: Not Given Sodium Phosphate (Neutra-Phos) 500 mg PO ONETIME ONE Stop: 01/16/19 09:25 Last Admin: 01/16/19 10:08 Dose: 500 mg Vancomycin HCl (Pharmacy To Dose - Vancomycin) 1 dose .XX ASDIRECTED [facility] - Exam General: Alert, Oriented, Cooperative, No Acute Distress HEENT: Pupils Equal, Pupils Reactive, Mucous Membr. Moist/[place] Neck: Supple Lungs: Clear to Auscultation, Normal Respiratory Effort Cardiovascular: Regular Rate, Regular Rhythm GI/Abdominal Exam: Normal Bowel Sounds, Soft, Non-Tender, No Distention Extremities: Normal Inspection, Non-Tender, No Pedal Edema Skin: Warm, Dry, Intact Neurological: No New Focal Deficit Psy/Mental Status: Alert, Normal Affect, Normal Mood - Problem List & Annotations (1) Prostate cancer metastatic to bone SNOMED Code(s): 165840289 Code(s): C61 - MALIGNANT NEOPLASM OF PROSTATE; C79.51 - SECONDARY MALIGNANT NEOPLASM OF BONE Status: Acute Current Visit: Yes (2) Tobacco use disorder SNOMED Code(s): 901058431 Code(s): F17.200 - NICOTINE DEPENDENCE, UNSPECIFIED, UNCOMPLICATED Status: Acute Current Visit: Yes (3) Diarrhea SNOMED Code(s): 60632575 Code(s): R19.7 - DIARRHEA, UNSPECIFIED Status: Acute Current Visit: Yes (4) Hypomagnesemia SNOMED Code(s): 798915909 Code(s): E83.42 - HYPOMAGNESEMIA Status: Acute Current Visit: Yes - Problem List Review Problem List Initiated/Reviewed/Updated: Yes - My Orders Last 24 Hours: My Active Orders 01/17/19 11:12 Chest Abdomen Pelvis w Cont [CT] Urgent 01/17/19 11:15 Sodium Chloride 0.9% [Normal Saline] 1,000 ml IV ASDIRECTED 01/17/19 11:21 Isolation [COMM] Stat 01/17/19 12:03 CLOSTRIDIUM DIFFICILE TOX RFLX [MREF] Urgent CULTURE STOOL [RM] Routine SHIGA TOXIN 1 & 2 [MREF] Routine 01/18/19 09:08 Magnesium Sulfate/Water [Magnesium Sulfate in Water Premix] 2 gm Premix Bag 1 bag IV ONETIME 01/18/19 09:15 Ciprofloxacin [Ciprofloxacin HCl] 500 mg PO BID [facility] 500 mg PO Q8HR 01/18/19 09:30 Phosphorus #1 [Neutra-Phos] 500 mg PO TID - Plan Plan:: #Sepsis: probable abdominal source. Patient with temp >102 and RR of 20. Immunocompromised. - Follow up on blood cultures - Discontinue vancomycin and zosyn. - Start cipro and flagyl - CT chest, abdomen, and pelvis shows colitis and probable gastroenteritis. - Stool studies, lactic acid, and lipase. - Rule out C diff #Hypomagnesemia: Improved. chronic; uncertain etiology. Patient with Mag of 0.6 on 01/07/19. Was started on oral replacement. Was 0.8 on admit. - Went up to 2.1 after 3 g of mag sulfate. -Trended down to 1.7. - Given an extra 1 g of IV mag oxide - Tele monitoring #Hypophosphatemia: Phos of 1.5. - No IV phos available here. - Oral Phos replacement. - Monitor electrolytes and replace as needed. #Gastroenteritis + Diarrhea: Possibly infectious as patient continues to have diarrhea off mag oxide. - Abdominal pain is improved. - Denies recent antibiotics, and recent travel, or new foods. - LFTs normal - Had 4 watery bowel movements on day of admit. - IV fluids. - Cipro and flagyl - Follow up on C diff - Stool studies negative so far. #Nasal congestion: - Saline nasal spray. #Tobacco use disorder: smoking 1.5 - 2 packs of cigarettes daily - NRT - Smoking cessation counseling provided #Prostate cancer with mets - Follows with oncology - Discussed patient's presentation and current management with Dr. Clark, he will coordinate for patient's appointment to be rescheduled. - Patient notified. #COPD: not in exacerbation. - Continue home meds #HLP #HTN: BP is at goal, on the lower side today. - Continue zocor DVT PPx: Lovenox GI: Regular diet Code status: Full code
[2019-01-18] MEDS: Check Patch TRDERM SCH (22:04)
[2019-01-18] MEDS: Simvastatin 10 MG Tab PO SCH (22:05)
[2019-01-18] MEDS: Gabapentin 300 MG Cap PO SCH (22:06)
[2019-01-18] MEDS: rOPINIRole 2 MG Tab PO SCH (22:07)
[2019-01-19] MEDS: Omeprazole 20 MG Cap.CR PO SCH (05:48)
[2019-01-19] MEDS: metroNIDAZOLE 250 MG Tab PO SCH (05:48)
[2019-01-19 06:44] LABS: CHLORIDE,CL 109 mmol/L (101-111); SODIUM,NA 140 mmol/L (135-145)
[2019-01-19] MEDS: Cyanocobalamin (Vitamin B12) 1,000 MCG Tab PO SCH (09:09)
[2019-01-19] MEDS: Vitamin E (dl-alpha-tocopherol acetate) 400 Unit Cap PO SCH (09:09)
[2019-01-19] MEDS: Ascorbic Acid 500 MG Tab PO SCH (09:09)
[2019-01-19] MEDS: Ciprofloxacin 500 MG Tab PO SCH (09:10)
[2019-01-19] MEDS: Aspirin 81 MG Tab.Chew PO SCH (09:10)
[2019-01-19] MEDS: Phosphorus #1 250 MG Tab PO SCH (09:11)
[2019-01-19] MEDS: Potassium Chloride 10 MEQ Tab.ER PO SCH (09:11)
[2019-01-19] MEDS: Loratadine 10 MG Tab PO SCH (09:12)
[2019-01-19] MEDS: Calcium Carbonate/Vitamin D3 1250 MG-200 Unit Tab PO SCH (09:12)
[2019-01-19] MEDS: Enoxaparin 40 MG/0.4 ML Syringe SUBCUT SCH (09:13)
[2019-01-19] MEDS: Nicotine 21 MG/24 Hr Patch TRDERM SCH (09:13)
[2019-01-19] MEDS: Cholecalciferol (Vitamin D3) 25 MCG Tab PO SCH (09:14)
--- NOTE | 2019-01-19 11:10 | PCM.DCSUM1 ---
Discharge Summary - Hospital Course Free Text/Narrative:: Mr. Hernan Nicole is a 63 y.o male with medical history significant for prostate cancer with osseous metastasis s/p radiation therapy, HLP, COPD, syncope and collapse, RLS, s/p small bowel resection, and hypomagnesemia who presented to the ED with complaints of diarrhea and chills. Mag was 0.8 on admission. He was placed on telemetry and started on IV magnesium sulfate. Mag oxide was discontinued. Diarrhea slowed overnight but recurred the following day. He developed fevers. Blood and stool studies were obtained. CT chest, abdomen, and pelvis was obtained. Showed colitis. He was transitioned from vancomycin and zosyn to cipro and flagyl. Stool studies resulted today with positive fungus. C diff negative. Continued to need phos and magnesium replacements. He is being transferred to [facility] for further management with possible ID consultation. HPI Initial Comments: Mr. Hernan Nicole is a 63 y.o male with medical history significant for prostate cancer with osseous metastasis s/p radiation therapy, HLP, COPD, syncope and collapse, RLS, s/p small bowel resection, and hypomagnesemia who presented to the ED with complaints of diarrhea and chills. Patient reports that he was seen in clinic about a week ago and was noted to have low Magnesium. He was started on Magnesium oxide. He was instructed to take 1 to 1.5 pills daily. He was instructed to not take 2 pills as he would have diarrhea. States he decided try two of the pills yesterday and has been having terrible diarrhea to the point of having clear stools since yesterday. He also reports chills. States he had nausea this morning but could only spit up clear sputum. Denies melena, hematochezia, dysuria, hematuria, edema, abdominal pain, chest pain, shortness of breath or fevers. Denies sick contacts or trying new meals. Has not eaten out for a few days. Denies any recent travel. Reports that he drank a bottle of wine coolers yesterday but before that last drink was about a month ago. Smokes 1-2 packs of cigarettes daily. Denies illicit drug use. Diagnosis: Stroke: No - Discharge Data Discharge Date: 01/19/19 Discharge Disposition: DC/Tfer to Acute Hospital 02 Condition: Stable - Discharge Diagnosis/Problem(s) (1) Prostate cancer metastatic to bone SNOMED Code(s): 378029924 ICD Code: C61 - MALIGNANT NEOPLASM OF PROSTATE; C79.51 - SECONDARY MALIGNANT NEOPLASM OF BONE Status: Acute Current Visit: Yes (2) Tobacco use disorder SNOMED Code(s): 505880241 ICD Code: F17.200 - NICOTINE DEPENDENCE, UNSPECIFIED, UNCOMPLICATED Status : Acute Current Visit: Yes (3) Diarrhea SNOMED Code(s): 19256269 ICD Code: R19.7 - DIARRHEA, UNSPECIFIED Status: Acute Current Visit: Yes (4) Hypomagnesemia SNOMED Code(s): 450546154 ICD Code: E83.42 - HYPOMAGNESEMIA Status: Acute Current Visit: Yes - Discharge Plan *PRESCRIPTION DRUG MONITORING PROGRAM REVIEWED*: Not Applicable *COPY OF PRESCRIPTION DRUG MONITORING REPORT IN PATIENT NELLIE: Not Applicable Home Medications: Home Meds Albuterol [Proventil HFA] 2 puff INH Q4H PRN 01/15/19 [History] Ascorbic Acid [Vitamin C] 1,000 mg PO DAILY 01/15/19 [History] Aspirin 81 mg PO DAILY 01/15/19 [History] Calcium Carbonate/Vitamin D3 [Calcium 500 mg Chewable Tablet] 1,200 mg pe PO DAILY 01/15/19 [History] Cholecalciferol (Vitamin D3) [Vitamin D3] 1,000 unit PO DAILY 01/15/19 [History] Cyanocobalamin (Vitamin B-12) [B-12] 1,000 mcg PO DAILY 01/15/19 [History] Gabapentin [Neurontin] 600 mg PO BEDTIME 01/15/19 [History] Loratadine [Claritin] 10 mg PO DAILY 01/15/19 [History] Omeprazole 20 mg PO BID 01/15/19 [History] Potassium Chloride 20 meq PO BID 01/15/19 [History] Simvastatin 20 mg PO DAILY 01/15/19 [History] Vitamin E 100 unit PO DAILY 01/15/19 [History] rOPINIRole HCl [Ropinirole HCl] 5 mg PO DAILY 01/15/19 [History] Ciprofloxacin [Ciprofloxacin HCl] 500 mg PO BID tablet 01/19/19 [Rx] Nicotine [Habitrol] 21 mg TRDERM DAILY patch 01/19/19 [Rx] Phosphorus #1 [Neutra-Phos] 500 mg PO TID tablet 01/19/19 [Rx] metroNIDAZOLE 500 mg PO Q8HR tablet 01/19/19 [Rx] Forms: ED Department Discharge Referrals: Elsie Padron MD [Primary Care Provider] - - Discharge Summary/Plan Comment DC Time >30 min.: Yes - General Info Date of Service: 01/19/19 Admission Dx/Problem (Free Text: Admission Diagnosis/Problem Admission Diagnosis/Problem Hypomagnesemia Subjective Update: Reports still having watery and loose bowel movements this morning. Was afebrile last night and this morning. Denies chest pain, shortness of breath, n/ v, dysuria, or hematuria. - Patient Data Vitals - Most Recent: Last Vital Signs Temp 97.4 F 01/19/19 08:00 Pulse 60 01/19/19 08:00 Resp 18 01/19/19 08:00 BP 117/65 01/19/19 08:00 Pulse Ox 99 01/19/19 08:00 Orthostatic Blood Pressure [ 94/67 Standing] Orthostatic Blood Pressure [ 107/66 Sitting] Orthostatic Blood Pressure [ 106/60 Supine] Weight - Most Recent: 132 lb 12.8 oz I&O - Last 24 hours: Intake & Output 01/18/19 01/19/19 01/19/19 22:59 06:59 14:59 Intake Total 240 550 Balance 240 550 Lab Results - Last 24 hrs: Laboratory Results - last 24 hr 01/19/19 01/19/19 Range/Units 06:00 06:00 WBC 4.8 L (5.0-10.0) 10^3/uL RBC 3.87 L (4.6-6.2) 10^6/uL Hgb 11.8 L (14.0-18.0) g/dL Hct 35.1 L (40.0-54.0) % MCV 90.7 (80-100) fL MCH 30.5 (27.0-34.0) pg MCHC 33.6 (33.0-35.0) g/dL Plt Count 229 (150-450) 10^3/uL Sodium 140 (135-145) mmol/L Potassium 4.0 (3.6-5.0) mmol/L Chloride 109 (101-111) mmol/L Carbon Dioxide 23.0 (21.0-31.0) mmol/L Anion Gap 12.0 BUN 10 (7-18) mg/dL Creatinine 0.7 (0.6-1.3) mg/dL Est Cr Clr Drug Dosing 92.03 mL/min Estimated GFR (MDRD) > 60 Glucose 100 (74-105) mg/dL Calcium 8.1 L (8.4-10.2) mg/dl Phosphorus 1.9 L (2.5-4.6) mg/dL Magnesium 1.8 (1.8-2.5) mg/dL LEDY Results - Last 24 hrs: Microbiology 01/17/19 12:03 Clostridioides difficile (PCR) - Final Stool / Feces 01/17/19 12:03 Stool Culture - Preliminary Stool / Feces 01/16/19 17:46 Aerobic Blood Culture - Preliminary Blood - Venous - Lab Draw NO GROWTH AFTER 2 DAYS Anaerobic Blood Culture - Preliminary NO GROWTH AFTER 2 DAYS 01/16/19 17:46 Aerobic Blood Culture - Preliminary Blood - Venous NO GROWTH AFTER 2 DAYS Anaerobic Blood Culture - Preliminary NO GROWTH AFTER 2 DAYS Med Orders - Current: Current Medications Acetaminophen (Tylenol) 650 mg PO Q6H PRN PRN Reason: Fever Greater Than 101 Last Admin: 01/18/19 04:43 Dose: 650 mg Albuterol (Proventil Hfa) 0 gm INH Q4H PRN PRN Reason: Wheezing Ascorbic Acid (Vitamin C) 1,000 mg PO DAILY [facility] Last Admin: 01/19/19 09:09 Dose: 1,000 mg Aspirin (Aspirin) 81 mg PO DAILY [facility] Last Admin: 01/19/19 09:10 Dose: 81 mg Cholecalciferol (Vitamin D3) 25 mcg PO DAILY [facility] Last Admin: 01/19/19 09:14 Dose: 25 mcg Ciprofloxacin (Ciprofloxacin Hcl) 500 mg PO BID [facility] Stop: 01/23/19 09:16 Last Admin: 01/19/19 09:10 Dose: 500 mg Cyanocobalamin (Vitamin B12) 1,000 mcg PO DAILY [facility] Last Admin: 01/19/19 09:09 Dose: 1,000 mcg Enoxaparin Sodium (Lovenox) 40 mg SUBCUT DAILY [facility] Last Admin: 01/19/19 09:13 Dose: Not Given Gabapentin (Neurontin) 600 mg PO BEDTIME [facility] Last Admin: 01/18/19 22:06 Dose: 600 mg Loratadine (Claritin) 10 mg PO DAILY [facility] Last Admin: 01/19/19 09:12 Dose: 10 mg Metronidazole (Metronidazole) 500 mg PO Q8HR [facility] Last Admin: 01/19/19 05:48 Dose: 500 mg Miscellaneous Information (Check Patch) 1 ea TRDERM BEDTIME [facility] Last Admin: 01/18/19 22:04 Dose: 1 ea Nicotine (Habitrol) 21 mg TRDERM DAILY [facility] Last Admin: 01/19/19 09:13 Dose: 21 mg Omeprazole (Omeprazole) 20 mg PO BIDAC [facility] Last Admin: 01/19/19 05:48 Dose: 20 mg Ondansetron HCl (Zofran) 4 mg IVPUSH Q6H PRN PRN Reason: Nausea/Vomiting Potassium Chloride (Klor-Con 10) 20 meq PO BIDMEALS [facility] Last Admin: 01/19/19 09:11 Dose: 20 meq Ropinirole HCl (Requip) 5 mg PO BEDTIME [facility] Last Admin: 01/18/19 22:07 Dose: 5 mg Simvastatin (Zocor) 20 mg PO BEDTIME [facility] Last Admin: 01/18/19 22:05 Dose: 20 mg Sodium Chloride ([place] Nasal [place]) 0 ml CHARLIE Q4H PRN PRN Reason: Congestion Sodium Phosphate (Neutra-Phos) 500 mg PO TID [facility] Stop: 01/19/19 21:01 Last Admin: 01/19/19 09:11 Dose: 500 mg Vitamin E (Vitamin E) 400 units PO DAILY [facility] Last Admin: 01/19/19 09:09 Dose: 400 units Discontinued Medications Acetaminophen (Tylenol) 650 mg PO Q4H PRN PRN Reason: Pain (Mild 1-3)/fever Calcium Carbonate (Calcium Carbonate/Vitamin D 1250 Mg-200 Unit) 1 tab PO DAILY [facility] Last Admin: 01/19/19 09:12 Dose: 1 tab Sodium Chloride (Normal Saline) 1,000 mls @ 999 mls/hr IV .BOLUS ONE Stop: 01/15/19 14:21 Last Admin: 01/15/19 13:41 Dose: 999 mls/hr Magnesium Sulfate/Dextrose 1 (gm/ Premix) 100 mls @ 100 mls/hr IV ONETIME ONE Stop: 01/15/19 15:48 Last Infusion: 01/15/19 17:18 Dose: Infused Sodium Chloride (Normal Saline) 1,000 mls @ 125 mls/hr IV ASDIRECTED [facility] Last Admin: 01/15/19 17:16 Dose: 125 mls/hr Magnesium Sulfate 2 gm/ Premix 50 mls @ 25 mls/hr IV ONETIME ONE Stop: 01/15/19 18:59 Last Admin: 01/15/19 17:14 Dose: 25 mls/hr Sodium Chloride (Normal Saline) 1,000 mls @ 500 mls/hr IV .BOLUS ONE Stop: 01/16/19 11:52 Last Admin: 01/16/19 10:08 Dose: 500 mls/hr Magnesium Sulfate/Dextrose (Magnesium Sulfate In D5w 100 Premix) 100 mls @ 100 mls/hr IV ONETIME ONE Stop: 01/16/19 11:59 Last Admin: 01/16/19 11:03 Dose: 100 mls/hr Piperacillin Sod/Tazobactam (Sod 3.375 gm/ Sodium Chloride) 100 mls @ 200 mls/ hr IV Q6H [facility] Last Infusion: 01/18/19 06:07 Dose: Infused Vancomycin HCl 1 gm/ Sodium (Chloride) 250 mls @ 166.667 mls/hr IV Q12H [facility] Last Admin: 01/18/19 05:16 Dose: 166.667 mls/hr Sodium Chloride (Normal Saline) 1,000 mls @ 75 mls/hr IV ASDIRECTED [facility] Stop: 01/18/19 11:16 Last Admin: 01/18/19 04:37 Dose: 75 mls/hr Magnesium Sulfate/Dextrose 1 (gm/ Premix) 100 mls @ 100 mls/hr IV ONETIME ONE Stop: 01/17/19 12:38 Last Infusion: 01/17/19 13:55 Dose: Infused Potassium Chloride 10 meq/ (Premix) 100 mls @ 100 mls/hr IV Q1H [facility] Stop: 01/17/19 15:59 Last Infusion: 01/17/19 17:40 Dose: Infused Magnesium Sulfate 2 gm/ Premix 50 mls @ 25 mls/hr IV ONETIME ONE Stop: 01/18/19 11:07 Last Infusion: 01/18/19 12:05 Dose: Infused Magnesium Sulfate 2 gm/ Premix 50 mls @ 25 mls/hr IV ONETIME ONE Stop: 01/18/19 16:07 Last Admin: 01/18/19 14:12 Dose: Not Given Iopamidol (Isovue-300 (61%)) 100 ml IVPUSH ONETIME ONE Stop: 01/17/19 11:38 Last Admin: 01/17/19 12:26 Dose: 100 ml Magnesium Oxide (Magnesium Oxide) 250 mg PO WITHBREAKFAST TASH Last Admin: 01/16/19 10:15 Dose: Not Given Sodium Phosphate (Neutra-Phos) 500 mg PO ONETIME ONE Stop: 01/16/19 09:25 Last Admin: 01/16/19 10:08 Dose: 500 mg Vancomycin HCl (Pharmacy To Dose - Vancomycin) 1 dose .XX ASDIRECTED TASH - Exam General: Reports: Alert, Oriented, Cooperative, No Acute Distress HEENT: Reports: Pupils Equal, Pupils Reactive, Mucous Membr. Moist/[place] Neck: Reports: Supple Lungs: Reports: Clear to Auscultation, Normal Respiratory Effort Cardiovascular: Reports: Regular Rate, Regular Rhythm GI/Abdominal Exam: Normal Bowel Sounds, Soft, Non-Tender, No Distention Extremities: Normal Inspection, Non-Tender, No Pedal Edema Skin: Reports: Warm, Dry, Intact Neurological: Reports: No New Focal Deficit Psy/Mental Status: Reports: Alert, Normal Affect, Normal Mood
--- NOTE | 2019-01-20 14:03 | EKG ---
01/16/2019 - NEAL SWAIN - TIME: 12:30. EKG shows normal sinus rhythm with heart rate of 58, incomplete right bundle- branch block. No ST elevation or depression. No T-wave inversions. QTc of 425. [facility] /[id number]
== END 2019-01-19 10:47 | DRG 720 ==
LOC: DL.ED 12:50 → DL.MS 14:44
PROVIDERS: ADMIT Internal Medicine; ATTEND Internal Medicine
DX: A41.9 Sepsis, unspecified organism (principal); K52.9 Noninfective gastroenteritis and colitis, unspecified; E83.42 Hypomagnesemia; C61 Malignant neoplasm of prostate; C79.51 Secondary malignant neoplasm of bone; J44.9 Chronic obstructive pulmonary disease, unspecified; G25.81 Restless legs syndrome; F17.210 Nicotine dependence, cigarettes, uncomplicated; I10 Essential (primary) hypertension; E78.00 Pure hypercholesterolemia, unspecified; E83.39 Other disorders of phosphorus metabolism; E53.8 Deficiency of other specified B group vitamins; K21.9 Gastro-esophageal reflux disease without esophagitis; R09.81 Nasal congestion; Z91.09 Other allergy status, other than to drugs and biological substances; Z90.49 Acquired absence of other specified parts of digestive tract; Z79.82 Long term (current) use of aspirin; Z79.899 Other long term (current) drug therapy; Z92.3 Personal history of irradiation
CPT/HCPCS: 36415; 71045; 71260; 74177; 80048; 80053; 82040; 83605; 83690; 83735; 84100; 84484; 85025; 85027; 85379; 87040; 87045; 87046; 87493; 87899; 93005; 96361; 96374; 99285-25; A9270-GY; J2543; J3370; J3475; J3480; J7030; J7050; Q9967